=== PATIENT | female | born 1965 | race Caucasian/White ===

== ENCOUNTER → 2023-12-04 10:12 | Outpatient (REF) | payer OTHER, SELFPAY ==
[2023-12-04 12:40] LABS: Rubella Negative
[2023-12-04 13:12] LABS: Hepatitis B Surface Antibody Negative
== END ==
LOC: OHS 10:12
PROVIDERS: ATTENDING PHYSICIAN Nurse Practitioner Family
DX: Z23 Encounter for immunization (principal)
CPT/HCPCS: 36415; 86480; 86706; 86735; 86762; 86765; 86787

== ENCOUNTER → 2024-04-25 08:08 | Outpatient (REF) | payer BC, SELFPAY ==
[2024-04-25 18:39] LABS: Urine Albumin Trace (Neg - Trace); Urine Bilirubin Negative (Negative); Urine Character Slightly Cloudy (Clear); Urine Color Yellow; Urine Glucose Negative (Negative); Urine Ketone Negative (Negative); Urine Leukocyte 2+ (Negative); Urine Nitrite Negative (Negative); Urine Occult Blood Negative (Negative); Urine Specific Gravity 1.025 (<1.030); Urine Urobilinogen Negative (Neg - 1+)
[2024-04-25 19:02] LABS: Urine Bacteria Few (Negative); Urine Squamous Cell 16-20 /LPF (Few); Urine White Cell 50-60 /HPF (0-5)
== END ==
LOC: CLAB 08:08
PROVIDERS: ATTENDING PHYSICIAN Obstetrics & Gynecology Gynecology
DX: R35.0 Frequency of micturition (principal)
CPT/HCPCS: 81003; 81015; 87086

== ENCOUNTER → 2024-07-01 14:18 | Outpatient (REF) | payer BC, OTHER, SELFPAY | LOC: RAD 14:18 | PROVIDERS: ATTENDING PHYSICIAN Nurse Practitioner Family | DX: M54.2 Cervicalgia (principal); M54.50 Low back pain, unspecified | CPT/HCPCS: 72050; 72110 ==

== ENCOUNTER → 2024-08-24 09:52 | Outpatient (REF) | payer OTHER, SELFPAY ==
[2024-08-24 12:52] LABS: Hepatitis B Surface Antibody Negative
== END ==
LOC: REG 09:52
PROVIDERS: ATTENDING PHYSICIAN Nurse Practitioner Family; FAMILY PHYSICIAN Nurse Practitioner Family
DX: Z23 Encounter for immunization (principal)
CPT/HCPCS: 36415; 86706

== ENCOUNTER → 2024-11-09 16:36 | Outpatient (REF) | payer BC, SELFPAY | LOC: WDC 16:36 | PROVIDERS: ATTENDING PHYSICIAN Obstetrics & Gynecology Gynecology; FAMILY PHYSICIAN Nurse Practitioner Family | DX: Z12.31 Encounter for screening mammogram for malignant neoplasm of breast (principal) | CPT/HCPCS: 77063; 77067 ==

== ENCOUNTER → 2024-11-16 10:35 | Outpatient (REF) | payer BC, SELFPAY | LOC: RAD 10:35 | PROVIDERS: ATTENDING PHYSICIAN Obstetrics & Gynecology Gynecology; FAMILY PHYSICIAN Nurse Practitioner Family | DX: Z78.0 Asymptomatic menopausal state (principal) | CPT/HCPCS: 77080 ==

== ENCOUNTER → 2024-12-22 10:25 | Outpatient (REF) | payer BC, SELFPAY | LOC: WDC 10:25 | PROVIDERS: ATTENDING PHYSICIAN Obstetrics & Gynecology Gynecology; FAMILY PHYSICIAN Nurse Practitioner Family | DX: R92.8 Other abnormal and inconclusive findings on diagnostic imaging of breast (principal) | CPT/HCPCS: 76642 ==

== ENCOUNTER 2024-12-26 11:14 | Emergency (ER) | payer BC, SELFPAY ==
[2024-12-26 11:18] VITALS: BP 142/100
[2024-12-26 12:25] VITALS: BP 121/85
[2024-12-26] MEDS: PEPCID 20 MG PO (12:34)
[2024-12-26] MEDS: DELTASONE 50 MG PO (12:34)
[2024-12-26] MEDS: BENADRYL 25 MG PO (12:35)
--- NOTE | 2024-12-26 12:51 | ED.GENMED ---
History of Present Illness
General
Chief Complaint: Allergic Reaction
Source: patient
Exam Limitations: none
Time Seen by Provider: 12/26/24 12:06
Nursing documentation reviewed up to this point in time: agreed with
History of Present Illness
History of Present Illness:
59 y/o F with ho asthma, graves disease
here with feeling of allergies, facial itching/redness/swelling above her eyes;
she says that 3 weeks ago she felt itchiness to face and eyes which she took benadryl for and it resolved
she wasn't sure what triggered it but does get seasonal allergies;
she uses zyrtec and nasal spray sometimes
pt says that a few day sago she had another episode where she ate eggs and toast and then met her family for lunch a few hours later, and when she got to the restaurant she felt itchiness and swelling/redness above her eyes and her cheeks, was
flushed, no lip swelling. she took benadryl and it resovled
several days later now, fast forward to this morning she woke up and had itchiness
Past History
Past History
ED Past Medical History: Asthma (allergy related); Negative HTN, Hypercholesterolemia or NIDDM
ED Past Surgical History:
Social History
Tobacco: Non-smoker
Alcohol: Occasional
Personal:
Living: with family
Course
Orders/Labs/Results
Orders:
Orders
12/26/24 12:22
Diphenhydramine [Benadryl] 25 mg PO NOW STA
Famotidine [Pepcid] 20 mg PO NOW STA
Prednisone [Deltasone] 50 mg PO NOW STA
Vital Signs
Initial and Last Documented VS:
Initial Vital Signs
Temp Pulse Resp BP Pulse Ox
36.7 C 71 16 142/100 98
12/26/24 11:18 12/26/24 11:18 12/26/24 11:18 12/26/24 11:18 12/26/24 11:18
Last Documented Vital Signs
Temp Pulse Resp BP Pulse Ox
36.7 C 62 20 121/85 98
12/26/24 11:18 12/26/24 12:25 12/26/24 12:25 12/26/24 12:25 12/26/24 13:25
*Pulse Oximetry
SaO2: 98
Oxygen Mode of Delivery: Room air
ED Attending Note
-
Portions of this chart may have been created with voice recognition software.� Occasional wrong word or��sound alike� substitutions may have occurred due to the inherent limitations of voice recognition software.
Discharge Plan
Departure
Patient Disposition: Home (Routine Discharge)
Date of Disposition: 12/26/24
Time of Disposition: 13:08
Patient with high blood pressure during this ER visit?: No
Condition: Fair
Covid-19: Not Applicable
Discharge Problem:
Allergic reaction
Instructions: Environmental allergies in adults
Prescriptions:
New
prednisone 10 mg Tablet
See Rx Instructions .ROUTE .COMPLEX Qty: 30 0RF
Rx Instructions:
Take By Mouth:
50 mg daily x2 days, 40 mg daily x2 days,
30 mg daily x2 days, 20 mg daily x2 days and 10 mg daily x 2 days
No Action
sertraline 100 MG tablet
100 mg PO DAILY
Referrals:
Rabia Jackson CRNP [Family Provider, Internal Medicine]
Stand Alone Forms: Return to Work
Activity Restrictions/Additional Instructions:
Start the prednisone tomorrow and take once a day as directed on the taper.
Take Benadryl 50 mg 2-3 times a day for 2 days as needed.
Follow-up with your family doctor in the meantime while you are waiting for pharmacy messenger. Return to the ER for worsening throat swelling or facial swelling, trouble breathing, fever. Your blood pressure was mildly elevated initially but it were
improved. Sometimes this is a reaction called angioedema which can happen spontaneously or from medications but this would require more testing
Otherwise it could be an allergen you are coming into contact with. For now since you had 2 reactions after eating eggs avoid eggs
For the moment.
Interventions
Interventions:
*Risk Screen - Suicide Last Done: 12/26/24 11:18
*General Assessment Last Done: 12/26/24 11:49
*Neglect/Abuse Screening Last Done: 12/26/24 11:18
*ED- Fall Risk Assessment Last Done: 12/26/24 11:49
*ED COVID-19 Vaccine History Last Done: 12/26/24 11:49
*Nursing Disposition Last Done: 12/26/24 13:25
ED- Cardiac Assessment Last Done: 12/26/24 11:49
ED- Pulmonary Assessment Last Done: 12/26/24 11:49
ED-Skin Assessment Last Done: 12/26/24 11:49
Discharge Date and Time
Discharge Date/Time: 12/26/24 13:32
Print Language: [id number]
== END 2024-12-26 13:32 | disposition home or self-care (01) ==
LOC: EMR 11:14
PROVIDERS: EMERGENCY PHYSICIAN Emergency Medicine; FAMILY PHYSICIAN Nurse Practitioner Family
DX: T78.40XA Allergy, unspecified, initial encounter (principal); X58.XXXA Exposure to other specified factors, initial encounter; J45.909 Unspecified asthma, uncomplicated
CPT/HCPCS: 99283

== ENCOUNTER → 2025-01-20 13:04 | Outpatient (REF) | payer BC, SELFPAY ==
[2025-01-20 13:59] LABS: Hematocrit 40.6 % (37.0-47.0); Hemoglobin 13.5 g/dL (12.0-16.0); Mean Corp Hgb Conc. 33.3 g/dL (33.0-37.0); Mean Corpuscular Volume 88.3 fL (81.0-99.0); Nucleated Red Blood Cells % 0 %; Platelet Count 255 10^3/uL (130-400); Red Cell Dist. Width 13.1 % (11.5-14.5)
[2025-01-20 14:22] LABS: C-Reactive Protein < 5.00 mg/L (0.0-10.00)
[2025-01-20 19:06] LABS: ALT (SGPT) 20 U/L (0-35); AST (SGOT) 22 U/L (14-36); Albumin 4.7 g/dl (3.5-5.0); Alkaline Phosphatase 56 U/L (38-126); Blood Urea Nitrogen 25 mg/dl (7-17); Calcium 9.8 mg/dl (8.4-10.2); Carbon Dioxide 27 mmol/L (22-30); Chloride 103 mmol/L (98-107); Glucose 91 mg/dl (70-99); Potassium 4.5 mmol/L (3.5-5.1); Sodium 135 mmol/L (135-145); Total Protein 7.4 g/dl (6.3-8.2); eGFR > 60.00
[2025-01-23 02:00] LABS: ANA, IgG Reflex to HEp-2 None Detected (None Detected)
== END ==
LOC: REG 13:04
PROVIDERS: ATTENDING PHYSICIAN Internal Medicine; FAMILY PHYSICIAN Nurse Practitioner Family
DX: T78.3XXA Angioneurotic edema, initial encounter (principal)
CPT/HCPCS: 36415; 80053; 85025; 85652; 86038; 86140; 86160; 86161; 86162

== ENCOUNTER → 2025-02-14 06:49 | Outpatient (REF) | payer BC, SELFPAY ==
[2025-02-14 08:08] LABS: Hematocrit 39.0 % (37.0-47.0); Hemoglobin 13.2 g/dL (12.0-16.0); Mean Corp Hgb Conc. 33.8 g/dL (33.0-37.0); Mean Corpuscular Volume 86.9 fL (81.0-99.0); Nucleated Red Blood Cells % 0 %; Platelet Count 250 10^3/uL (130-400); Red Cell Dist. Width 13.5 % (11.5-14.5)
[2025-02-14 08:39] LABS: ALT (SGPT) 21 U/L (0-35); AST (SGOT) 25 U/L (14-36); Albumin 4.3 g/dl (3.5-5.0); Alkaline Phosphatase 57 U/L (38-126); Blood Urea Nitrogen 21 mg/dl (7-17); Calcium 9.4 mg/dl (8.4-10.2); Carbon Dioxide 30 mmol/L (22-30); Chloride 106 mmol/L (98-107); Glucose 106 mg/dl (70-99); HDL Cholesterol 69 mg/dl; LDL Cholesterol, Calculated 192 mg/dl; Potassium 4.5 mmol/L (3.5-5.1); Sodium 141 mmol/L (135-145); Total Protein 6.8 g/dl (6.3-8.2); Very Low Density Lipoprotein 31 mg/dl (0-30); eGFR > 60.00
== END ==
LOC: REG 06:49
PROVIDERS: ATTENDING PHYSICIAN Nurse Practitioner Family
DX: Z00.00 Encounter for general adult medical examination without abnormal findings (principal)
CPT/HCPCS: 36415; 80053; 80061; 84443; 85025

== ENCOUNTER → 2025-05-02 08:14 | Outpatient (REF) | payer BC, SELFPAY | LOC: CPAP 08:14 | PROVIDERS: ATTENDING PHYSICIAN Obstetrics & Gynecology Gynecology | DX: Z01.419 Encounter for gynecological examination (general) (routine) without abnormal findings (principal) | CPT/HCPCS: 87624; G0123 ==